=== PATIENT | female | born 1980 | race Caucasian/White ===

== ENCOUNTER 2020-12-20 15:08 | Emergency (ER) | payer OTHER, SELFPAY ==
[2020-12-20] VITALS (11 sets, daily range): BP systolic 163–177; BP diastolic 99–110; PULSE 64–87; RESP 11–21; TEMP 35.9; O2SAT 98–100
--- NOTE | 2020-12-20 15:45 | ECG_ITS ---
Measurements Intervals [place] Rate: 77 P: -29 HI: 135 QRS: 5 QRSD: 95 T: -28 QT: 378 QTc: 430 Interpretive Statements SINUS RHYTHM POSSIBLE LEFT ATRIAL ENLARGEMENT INCOMPLETE RIGHT BUNDLE BRANCH BLOCK DELAYED PRECORDIAL R/S TRANSITION INFERIOR INFARCT, AGE INDETERMINATE BASELINE ARTIFACT- I, III, AVR, AVL ABNORMAL ECG Electronically Signed On 12-21-2020 15:40:14 CDT by Malcolm Butts D.O.
[2020-12-20] MEDS: SODIUM CHLORIDE 0.9% IV 1,000 ML 999 ML IV CONT (16:11)
[2020-12-20 16:35] LABS: Basophils Absolute Auto 0.1 K/mm3 (0.0-0.1); Basophils Percent Auto 0.6 % (0.2-1.2); Eosinophils Absolute Auto 0.2 K/mm3 (0-0.3); Eosinophils Percent Auto 2.1 % (0-4.4); Hematocrit 46.5 % (37.0-47.0); Hemoglobin 15.5 g/dL (12.0-15.0); Immature Granulocyte Absolute 0.05 K/mm3 (0.00-0.031); Immature Granulocyte Percent A 0.5 % (0-0.5); Lymphocytes Absolute Auto 3.39 K/mm3 (0.9-3.2); Lymphocytes Percent Auto 33.1 % (18.3-44.2); Mean Corpuscular HGB Conc 33.3 g/dl (32-36); Mean Corpuscular Hemoglobin 29.5 pg (26-34); Mean Corpuscular Volume 88.4 fl (80-100); Mean Platelet Volume 9.8 fl (7.4-10.4); Monocytes Absolute Auto 0.8 K/mm3 (0.1-0.6); Monocytes Percent Auto 7.5 % (2.6-8.5); Neutrophils Absolute Auto 5.8 K/mm3 (1.3-6.7); Neutrophils Percent Auto 56.2 % (45.5-73.1); Platelet Count Result 315 k/mm3 (150-375); Red Blood Count 5.26 M/mm3 (4.2-5.4); Red Cell Distribution Width 13.1 % (11.5-14.5); White Blood Count 10.2 K/mm3 (4.5-10.0)
[2020-12-20 16:43] LABS: Add Urine Microscopic? YES; Appearance Urine Clear (Clear); Bilirubin Urine Negative (Negative); Blood Urine 2+ (Negative); Color Urine Yellow (Yellow); Glucose Urine UA Negative (Negative); Ketones Urine Negative (Negative); Leukocyte Esterase Ur Negative LEU/UL (Negative); Mucus Urine Rare /lpf; Nitrate Urine Negative (Negative); Protein Urine Negative (Negative); Specific Grav Ur 1.018 (1.001-1.035); Squamous Epithelial Cell Urine Rare /hpf (Few); Urobilinogen Urine Negative mg/dL (<2.0); WBC Urine 0-3 /hpf
--- NOTE | 2020-12-20 16:52 | ED.RECABL ---
HPI - Recheck/Abnormal Lab/Rx General Chief Complaint: Recheck/Abnormal Lab/Rx Stated Complaint: ELEVATED BP, H/A Time Seen by Provider: 12/20/20 15:38 History of Present Illness HPI narrative: Patient presents for evaluation of elevated blood pressure. Reports a history of hypertension chronic kidney disease was seen her psychiatrist on Friday noted elevated blood pressures. Her blood pressure remained elevated for the past 2 days the high 100s with intermittent systolic readings above 200. 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 She reports mild headache but denies any changes in vision, nausea, vomiting, chest pain, abdominal pain, focal numbness or weakness Related Data Home Medications Medication Instructions Recorded Confirmed amlodipine 10 mg tablet 10 mg PO DAILY tablet 12/13/19 04/13/20 aripiprazole 2 mg tablet 2 mg PO DAILY tablet 12/13/19 04/13/20 baclofen 10 mg tablet 10 mg PO DAILY tablet 12/13/19 04/13/20 bupropion HCl 150 mg 24 hr tablet, 150 mg PO ONCE tablet 12/13/19 04/13/20 extended release bupropion HCl 300 mg 24 hr tablet, 300 mg PO ONCE tablet 12/13/19 04/13/20 extended release carvedilol 25 mg tablet 25 mg PO BID tablet 12/13/19 04/13/20 ergocalciferol (vitamin D2) 1,250 50,000 unit PO MONTHLY cap 12/13/19 04/13/20 mcg (50,000 unit) capsule fluticasone furoate 100 INHALATION 12/13/19 04/13/20 mcg/actuation blister powder for inhalation furosemide 20 mg tablet 20 mg PO .3 times a week tablet 12/13/19 04/13/20 heparin (porcine) 10,000 unit/mL 10,000 unit SUBCUT .3 times a week 12/13/19 04/13/20 injection solution ml hyoscyamine sulfate 0.125 mg 0.125 mg PO DAILY tablet 12/13/19 04/13/20 sublingual tablet indapamide 2.5 mg tablet 2.5 mg PO DAILY tablet 12/13/19 04/13/20 lamotrigine 200 mg tablet 200 mg PO BID tablet 12/13/19 04/13/20 levothyroxine 200 mcg tablet 200 mcg PO DAILY tablet 12/13/19 04/13/20 loratadine 10 mg tablet 10 mg PO DAILY tablet 12/13/19 04/13/20 sertraline 100 mg tablet 100 mg PO BID tablet 12/13/19 04/13/20 spironolactone 100 mg tablet 100 mg PO DAILY tablet 12/13/19 04/13/20 trazodone 50 mg tablet 50 mg PO .at hs tablet 12/13/19 04/13/20 syringe with needle 3 mL 20 gauge #1 each 12/23/19 04/13/20 x 1 dextroamphetamine-amphetamine ER 10 mg PO DAILY 04/13/20 04/13/20 10 mg 24hr capsule,extend release galcanezumab-gnlm 120 mg/mL 120 mg SUBCUT MONTHLY 04/13/20 04/13/20 subcutaneous pen injector sumatriptan succinate 50 mg tablet ea PO 04/13/20 04/13/20 Allergies Allergy/AdvReac Type Severity Reaction Status Date / Time No Known Allergies Allergy Verified 12/20/20 18:04 Review of Systems Review of Systems: CONSTITUTIONAL: Denies fever, chills, or sweats. EYES: Denies visual changes, redness, or discharge. ENT: Denies rhinorrhea, congestion, sore throat, or otalgia. CARDIOVASCULAR: Denies chest pain, palpitations, or edema. RESPIRATORY: Denies cough or dyspnea. GASTROINTESTINAL: Denies abdominal pain, nausea, vomiting, or diarrhea. GENITOURINARY: Denies dysuria or hematuria. SKIN: Denies rash or itching. MUSCULOSKELETAL: Denies back pain, joint pain, or myalgia. NEUROLOGIC: Denies numbness, dizziness, or weakness. PSYCHIATRIC: Denies anxiety or depression. All systems reviewed & are unremarkable except as noted in HPI and below PMFSH Family History Family History Father Family history of thyroid disease Diabetes mellitus Depression Hypertension Mother Family history of thyroid disease Diabetes mellitus Depression Hypertension Social History Social History Smoking status: Never smoker Second hand tobacco smoke exposure: No Alcohol intake: never Exam Narrative: GENERAL: Well-appearing, well-nourished, and in no acute distress. HEAD: Normocephalic, atraumatic. EYES: PERRLA and EOMI
[2020-12-20 16:56] LABS: Alanine Aminotransferase 19 U/L (4-35); Albumin Level 4.8 g/dL (3.5-5.1); Alkaline Phosphatase 67 U/L (38-126); Anion Gap 11 mmol/L (8-16); Aspartate Amino Transferase 25 U/L (14-36); Bilirubin,Total 0.6 mg/dL (0.2-1.3); Blood Urea Nitrogen 17 mg/dL (7-17); Calcium 10.1 mg/dL (8.4-10.2); Carbon Dioxide 23 mmol/L (22-30); Chloride 106 mmol/L (98-107); Estimated CRCL calculation 84 ml/min; Estimated Glomerular Filt Rate > 60; Glucose 97 mg/dL (65-110); Sodium 140 mmol/L (137-145)
[2020-12-20 17:08] LABS: Troponin I < 0.012 ng/mL (0.000-0.034)
== END 2020-12-20 18:07 | disposition home or self-care (01) ==
PROVIDERS: Emergency Provider Emergency Medicine
DX: I10 Essential (primary) hypertension (principal); R51.9 Headache, unspecified; R94.31 Abnormal electrocardiogram [ECG] [EKG]; I45.10 Unspecified right bundle-branch block
CPT/HCPCS: 36415; 80053; 81001; 84484; 85025; 93005; 96361; 96374; 99284; J0131; J7030